=== PATIENT | female | born 2005 | race African-American/Black ===

== ENCOUNTER 2025-03-06 17:46 | Inpatient (IN) | payer OTHER, SELFPAY ==
[2025-03-06 18:01] VITALS: BP 156/100; PULSE 92; O2SAT 98
[2025-03-06 18:02] VITALS: BP 146/95; PULSE 110; RESP 16; TEMP 37.1; O2SAT 98; BMI 34.2
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
[2025-03-06 18:39] LABS: MANUAL DIFF FLAG NO
[2025-03-06 18:40] LABS: Basophils Absolute Auto 0.1 X10*3/uL (0.0-0.2); Basophils Percent Auto 0.6 % (0-2); Eosinophils Percent Auto 0.2 % (0-4); Hematocrit 39.4 % (42.0-52.0); Hemoglobin 13.4 g/dl (14.0-18.0); Imm Gran Abs Auto 0.04 X10*3/uL (0.00-0.03); Imm Gran Pct Auto 0.3 % (0.0-0.4); Lymphocytes Absolute Auto 1.9 X10*3/uL (1.2-4.9); Lymphocytes Percent Auto 15.1 % (20-40); Mean Corpuscular Hemoglobin 28.3 pg (27.0-33.0); Mean Corpuscular Volume 83.3 fL (80.0-98.0); Mean Platelet Volume 9.9 fL (9.4-12.4); Monocytes Absolute Auto 0.7 X10*3/uL (0.1-1.2); Monocytes Percent Auto 5.3 % (2-11); Neutrophils Absolute Auto 9.8 x10*3/uL (2.0-8.3); Neutrophils Percent Auto 78.5 % (45-73); Platelet Count 429 X10*3/uL (160-400); Red Blood Count 4.73 X10*6/uL (4.60-5.80); Red Cell Distribution Width 12.9 % (11.0-16.0); White Blood Count 12.5 X10*3/uL (4.8-10.8)
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
[2025-03-06 18:55] LABS: Alanine Aminotransferase 16 U/L (0-40); Albumin Level 4.9 g/dL (3.5-5.0); Alkaline Phosphatase 91 U/L (39-117); Anion Gap 14 (12-20); Aspartate Amino Transferase 30 U/L (5-37); Bilirubin Total 0.4 mg/dL (0.0-1.0); Blood Urea Nitrogen 9 mg/dL (9-16); Carbon Dioxide 24 mmol/L (22-29); Chloride 108 mmol/L (96-108); Creatinine Clr Calc Pharmacy 174.1; Estimated Glomerular Filt Rate > 60; Ethanol < 10 mg/dL; Glucose Random 103 mg/dL (60-115); Potassium 3.9 mmol/L (3.3-5.1); Sodium 142 mmol/L (135-145); Total Protein 8.7 g/dL (6.5-8.0)
[2025-03-06 19:25] LABS: Appearance Urine Clear; Color Urine Yellow; Glucose Urine UA Negative (Negative); Leukocyte Esterase Urine Negative (Negative); Nitrite Urine Negative (Negative); Specific Gravity - Urine 1.025 (1.005-1.025); UMIC TRIGGER UACC YES; Urine Blood Negative (Negative); Urine Ketones Trace mg/dL (Negative); Urine Protein 30 (1+) mg/dL (Neg-Trace)
[2025-03-06 19:28] LABS: Bacteria Urine None Seen (None Seen); Hyaline Casts Urine 0-2 /LPF (0-2); RBC Urine 0-2 /HPF (0-2); Squamous Epithelial Cell Urine 0-2 /HPF (0-2); WBC Urine 0-5 /HPF (0-5)
[2025-03-06 19:32] LABS: Amphetamine Screen Urine Not Detected (Not Detect); Barbiturates, Urine Not Detected (Not Detect); Benzodiazepines Screen Urine POSITIVE (Not Detect); Buprenorphine Scr Not Detected (Not Detect); Cannabinoid Screen Urine POSITIVE (Not Detect); Cocaine Screen Urine Not Detected (Not Detect); Fentanyl, urine Not Detected (Not Detect); Methadone Screen, Urine Not Detected (Not Detect); Opiate Screen Urine Not Detected (Not Detect); Oxycodone Screen Urine Not Detected (Not Detect); Phencyclidine Screen Urine Not Detected (Not Detect)
--- NOTE | 2025-03-06 19:42 | ED_ITS ---
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 Patient indicates she was involved in a stressful conversation with her mother over her prior traumas. The conversation did not go well, the patient became more anxious and upset, and began to cry hysterically. The patient states ?that her mother has no empathy for her, that she pretends to be empathetic, then makes jokes about her emotional distress?. Patient's mother called EMS to the home. Patient denies SI or HI. The patient does have a prior history of suicide attempts including overdose and cutting. Related Data Home Medications ?Medication ?Instructions ?Recorded ?Confirmed clobazam 10 mg tablet 20 mg PO BEDTIME 03/06/25 03/07/25 levetiracetam 250 mg tablet 2,000 mg PO BID 03/06/25 03/07/25 medroxyprogesterone 150 mg/mL 150 mg IM Q90D 03/06/25 03/07/25 intramuscular suspension clonazepam 2 mg disintegrating 2 mg PO NEEDED 03/07/25 03/07/25 tablet Allergies Allergy/AdvReac Type Severity Reaction Status Date / Time lactose AdvReac Stomach Verified 03/07/25 07:50 Upset Review of Systems 2 Review of Systems: Yes all other systems are reviewed and are negative Constitutional: Constitutional: Denies fatigue and Denies fever(s) Cardiovascular: Cardiovascular: Denies chest pain and Denies dyspnea Respiratory: Respiratory: Denies dyspnea Gastrointestinal: Gastrointestinal: Denies abdominal pain, Denies nausea and Denies vomiting Endocrine: Endocrine: Denies fatigue PMFSH Past Medical History Attestation statement: The following information was validated with the patient. Social History Social History Alcohol intake: never Patient Tobacco Use Status: Never used Tobacco Smoked in Last 30 Days: No Use of substances other than those prescribed or required for medical reasons: Yes Substance Use Type: Marijuana Substance Use Frequency: Occasionally Substance Use Frequency Other:: States she has not smoked marijuana in days Last Used Substance: Days (ago) Any prior treatment program specific to substance use: No Advance Directives: No Advance Directives Information Provided: No Nutrition Risks: No Nutritional Risk Physical Exam ED Vital Signs: Vital Signs - 24 hr 03/06/25 18:02 03/06/25 22:14 03/07/25 06:37 Temperature 98.8 F 98.4 F Pulse Rate 110 H 94 83 Respiratory Rate 16 18 16 Blood Pressure 146/95 H 149/84 H 124/71 Pulse Oximetry 98 98 Oxygen Delivery Method Room Air Room Air 03/07/25 09:59 Temperature 98.0 F Pulse Rate 87 Respiratory Rate 18 Blood Pressure 142/89 H Pulse Oximetry 96 Oxygen Delivery Method Room Air BMI result Body Mass Index 34.2 Const Other: Alert Orientation/consciousness: patient oriented x3 Resp Effort & Inspection: normal respiratory effort Cardio Other: Normal peripheral perfusion Skin Other: Warm dry no rash Neuro General: patient oriented x3, gait normal, no focal motor deficits and CN's II- XI intact bilaterally Psych Other: Cooperative, tearful at times, pressured speech, disorganized thought process, often reverting back to her prior conversations she has had with the mother in the past about her traumas, difficult for the patient to answer questions involving what occurred today, which brought her to the emergency room Course Reevaluation(s) Reevaluation #1: Just received recent records from [facility] from February 09. We have never seen the patient here in the [facility] Emergency Department, we did not have her full medical history. Time: 22:15 Reevaluation #2: Time: 02:10 Date: 03/07/25 Provider: JONNA Palacios Patient in physician observation for psychiatric evaluation.? No acute events reported overnight. No current complaints. VS stable.? Patient is in bed search status/pending CARE team evaluation. Will continue to monitor. Reevaluation #3: Time: 07:07 Date: 03/07/25 Provider: Kimberly Rubin DO Patient in physician observation for psychiatric evaluation.? No acute events reported overnight. No current complaints. VS stable.? pending CARE team evaluation. Will continue to monitor. Additional Reevaluation(s): Time: 16:55 Date: 03/07/25 Provider: Kimberly Rubin DO Physician observation ended at 455pm. Patient to be admitted as inpatient to psychiatry. Medications Administered Generic Name Dose Route Start Last Admin Trade Name Freq PRN Reason Stop Dose Admin Acetaminophen 650 mg 03/07/25 15:44 03/07/25 16:13 Acetaminophen 325 Mg Tablet PO 650 mg Q6H PRN Administration Pain, Mild 1-3,fever,headache Clobazam 20 mg 03/06/25 21:45 03/06/25 21:45 Clobazam 10 Mg Tablet PO 20 mg BEDTIME EVERETT Administration Ibuprofen 600 mg 03/07/25 15:44 03/07/25 16:12 Ibuprofen 600 Mg Tablet PO 600 mg Q6H PRN Administration Pain, Moderate(Pain Scale 4-6) Levetiracetam 2,000 mg 03/06/25 21:30 03/07/25 10:05 Levetiracetam 1,000 Mg Tablet PO 2,000 mg BID EVERETT Administration Discontinued Medications Generic Name Dose Route Start Last Admin Trade Name Eric PRN Reason Stop Dose Admin Melatonin 9 mg 03/06/25 23:11 03/06/25 23:26 Melatonin 3 Mg Tablet PO 03/06/25 23:12 9 mg ONCE ONE Administration Medical Decision Making Medical Decision Making MDM Narrative: 19-year-old F with hx of obesity, PCOS, IBS, anxiety and depression, ADHD, 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 Patient indicates she was involved in a stressful conversation with her mother over her prior traumas. The conversation did not go well, the patient became more anxious and upset, and began to cry hysterically. The patient states ?that her mother has no empathy for her, that she pretends to be empathetic, then makes jokes about her emotional distress?. Patient's mother called EMS to the home. Patient denies SI or HI. The patient does have a prior history of suicide attempts including overdose and cutting. Problem: Psychiatric illness , seizure disorder History: Per patient I have considered the following differential diagnoses: SI, HI, decompensated psychiatric illness, drug/alcohol intoxication Plan: Screening labs including ethanol and drug screen we will be obtained, care team consult has been placed. The patient will likely require a psychiatric consult, she seems somewhat manic I have independently reviewed the following tests: Labs: No leukocytosis, not anemic, drug screen positive for benzos and marijuana, ethanol negative, not Lab Data 03/06/25 18:33 03/06/25 18:33 Labs: Lab Results 03/06/25 03/06/25 03/07/25 Range/Units 18:33 19:11 10:17 WBC 12.5 H (4.8-10.8) X10*3/uL RBC 4.73 (4.60-5.80) X10*6/uL Hgb 13.4 L (14.0-18.0) g/dl Hct 39.4 L (42.0-52.0) % MCV 83.3 (80.0-98.0) fL MCH 28.3 (27.0-33.0) pg MCHC 34.0 (31.0-36.0) g/dl RDW 12.9 (11.0-16.0) % Plt Count 429 H (160-400) X10*3/uL MPV 9.9 (9.4-12.4) fL Immature Gran % (Auto) 0.3 (0.0-0.4) % Neut % (Auto) 78.5 H (45-73) % Lymph % (Auto) 15.1 L (20-40) % Bland % (Auto) 5.3 (2-11) % Eos % (Auto) 0.2 (0-4) % Baso % (Auto) 0.6 (0-2) % Lymph # (Auto) 1.9 (1.2-4.9) X10*3/uL [place] # (Auto) 0.7 (0.1-1.2) X10*3/uL Eos # (Auto) 0.0 (0.0-0.4) X10*3/uL Baso # (Auto) 0.1 (0.0-0.2) X10*3/uL Abs Immat Gran (auto) 0.04 H (0.00-0.03) X10*3/uL Absolute Neuts (auto) 9.8 H (2.0-8.3) x10*3/uL Absolute Nucleated RBC 0.000 (0.0-0.012) X10*3/uL Nucleated RBC % (auto) 0.0 (0.0-0.2) /100WBC Sodium 142 (135-145) mmol/L Potassium 3.9 (3.3-5.1) mmol/L Chloride 108 (96-108) mmol/L Carbon Dioxide 24 (22-29) mmol/L Anion Gap 14 (12-20) BUN 9 (9-16) mg/dL Creatinine 0.79 (0.5-1.4) mg/dL Estim Creat Clear Calc 174.1 Estimated GFR > 60 Random Glucose 103 (60-115) mg/dL Calcium 10.0 (8.4-10.2) mg/dL Total Bilirubin 0.4 (0.0-1.0) mg/dL AST 30 (5-37) U/L ALT 16 (0-40) U/L Alkaline Phosphatase 91 (39-117) U/L Total Protein 8.7 H (6.5-8.0) g/dL Albumin 4.9 (3.5-5.0) g/dL Beta HCG, Quant < 2 mIU/mL Urine Color Yellow Urine Appearance Clear Urine pH 6.0 (5.0-9.0) Ur Specific [place] 1.025 (1.005-1.025) Urine Protein 30 (1+) H (Neg-Trace) mg/dL Urine Glucose (UA) Negative (Negative) mg/dL Urine Ketones Trace (Negative) mg/dL Urine Blood Negative (Negative) Urine Nitrite Negative (Negative) Ur Leukocyte Esterase Negative (Negative) Urine RBC 0-2 (0-2) /HPF Urine WBC 0-5 (0-5) /HPF Ur Squamous Epith Cells 0-2 (0-2) /HPF Urine Bacteria None Seen (None Seen) Hyaline Casts 0-2 (0-2) /LPF Urine Opiates Screen Not Detected (Not Detect) Ur Buprenorphine Scrn Not Detected (Not Detect) ng/mL Ur Oxycodone Screen Not Detected (Not Detect) ng/mL Urine Methadone Screen Not Detected (Not Detect) ng/mL Urine Fentanyl Screen Not Detected (Not Detect) Ur Barbiturates Screen Not Detected (Not Detect) Ur Phencyclidine Scrn Not Detected (Not Detect) Ur Amphetamines Screen Not Detected (Not Detect) U Benzodiazepines Scrn POSITIVE H (Not Detect) Urine Cocaine Screen Not Detected (Not Detect) U Marijuana (THC) Screen POSITIVE H (Not Detect) Ethyl Alcohol < 10 mg/dL Influenza Type A (PCR) NEGATIVE (Negative) Influenza Type B (PCR) NEGATIVE (Negative) RSV RNA Qual (PCR) NEGATIVE (Negative) SARS-CoV-2 RNA (RT-PCR) NEGATIVE (Negative) Discharge Plan Discharge Clinical Impression: Emotional stress, Anxiety, Disorganized thought process Patient Disposition: Admitted As Inpatient Interventions: [place]-Suicide Risk Severity Scale Last Done: 03/06/25 18:39
[2025-03-06 20:01] LABS: HCG Quantitative < 2 mIU/mL
[2025-03-06] MEDS: cloBAZam 10 MG TABLET 20 MG PO (21:45)
[2025-03-06] MEDS: levETIRAcetam 1,000 MG TABLET 2000 MG PO (21:46)
[2025-03-06 22:14] VITALS: BP 149/84; PULSE 94; RESP 18
[2025-03-06] MEDS: Melatonin 3 MG TABLET 9 MG PO (23:26)
[2025-03-07 06:37] VITALS: BP 124/71; PULSE 83; RESP 16; TEMP 36.9; O2SAT 98
[2025-03-07 09:59] VITALS: BP 142/89; PULSE 87; RESP 18; TEMP 36.7; O2SAT 96
[2025-03-07] MEDS: levETIRAcetam 1,000 MG TABLET 2000 MG PO ×2 (10:05→21:13)
[2025-03-07 11:06] LABS: Influenza A PCR NEGATIVE (Negative); Influenza B PCR NEGATIVE (Negative); Resp Syncy Virus RNA Qual PCR NEGATIVE (Negative); SARS COV2 PCR INHOUSE NEGATIVE (Negative)
--- NOTE | 2025-03-07 11:11 | PC.NURSE ---
Report received. Taken over care at this time.
--- NOTE | 2025-03-07 13:39 | PHA.MEDREC ---
Pharmacy Consult ? Medication Reconciliation Pharmacy has reviewed the medication reconciliation done by nursing and also spoke to patient to confirm medication list. Per patient, she takes 8 tablets of levetiracetam 250 mg twice a day because the bigger dose/size tablets give her a hard time of swallowing. She can't recall the date of last dose of medroxyprogesterone injection.
--- NOTE | 2025-03-07 14:28 | MHC.EDTECH ---
While patient was in the shower she pulled the emergency button saying she felt like she was going to have a seizure at which point me and Precious started to talk to her and change the subject finish helping her get dressed and walked her room without incident and notified the nurse
--- NOTE | 2025-03-07 14:45 | PC.NURSE ---
Pt. asked to speak to primary RN. Pt. appears anxious and is making various statements that something is wrong with her. Pt. appears to be having flight of ideas and rambling on about various topics. Informed pt. will reach out to MD. about her complaints. Will awaiting new orders.
--- NOTE | 2025-03-07 15:00 | PC.NURSE ---
Pt. seems to be okay while in her room. Pt. continues to come out of her room, and stating having multiple complaints of pain. Pt. appears anxious and stating various things going on with her and to inform the doctor of her issues.
--- NOTE | 2025-03-07 15:17 | PC.NURSE ---
Reached out to MD Rubin about pt's multiple complaints of pain and that she appears anxious. MD notified and made aware. No new orders at this time.
--- NOTE | 2025-03-07 15:22 | PC.NURSE ---
MD Rubin came to speak to pt. at bedside. Care care team coordinator scheduler in there as well.
--- NOTE | 2025-03-07 15:45 | PC.NURSE ---
Per CARE Team, pt. to be an admit as inpt.
[2025-03-07] MEDS: Ibuprofen 600 MG TABLET PO (16:12)
[2025-03-07] MEDS: Acetaminophen 325 MG TABLET 650 MG PO (16:13)
[2025-03-07 16:38] VITALS: BP 159/89; PULSE 102; RESP 20; TEMP 36.7; O2SAT 100
[2025-03-07 16:42] LABS: UPreg QC Valid YES; Urine Pregnancy NEGATIVE (NEGATIVE)
[2025-03-07 18:00] VITALS: BP 146/81; PULSE 102; TEMP 36.9; O2SAT 95
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
[2025-03-07] MEDS: cloBAZam 10 MG TABLET 20 MG PO (21:13)
[2025-03-07] MEDS: traZODone HCL 50 MG TABLET PO (21:14)
[2025-03-07 22:03] VITALS: BP 121/7; PULSE 72; RESP 18; TEMP 36.2; O2SAT 97
[2025-03-08] MEDS: clonazePAM 1 MG TABLET 2 MG PO (01:02)
[2025-03-08] MEDS: Ibuprofen 600 MG TABLET PO ×2 (01:02→08:18)
[2025-03-08 07:50] VITALS: BP 138/86; PULSE 121; RESP 16; TEMP 36.4; O2SAT 99
[2025-03-08] MEDS: levETIRAcetam 1,000 MG TABLET 2000 MG PO ×2 (08:18→21:13)
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
[2025-03-08] MEDS: Milk of Magnesia 30 ML ORAL.SUSP PO (11:04)
[2025-03-08 20:15] VITALS: BP 128/78; PULSE 96; TEMP 37.1; O2SAT 97
[2025-03-08] MEDS: cloBAZam 10 MG TABLET 20 MG PO (21:12)
[2025-03-08] MEDS: Prazosin HCL 1 MG CAPSULE PO (21:13)
[2025-03-08] MEDS: traZODone HCL 50 MG TABLET PO ×2 (21:13→22:48)
[2025-03-08] MEDS: diphenhydrAMINE HCL 25 MG CAPSULE 50 MG PO (22:48)
[2025-03-09 08:00] VITALS: BP 111/52; PULSE 90; RESP 16; TEMP 36.8; O2SAT 97
[2025-03-09] MEDS: levETIRAcetam 1,000 MG TABLET 2000 MG PO ×2 (08:38→21:53)
--- NOTE | 2025-03-09 15:36 | P.PNPSI_ITS ---
Subjective Subjective Date of Service: 03/09/25 Reason For Visit: PTSD, Cannabis Use Disorder Interim History: Active on unit, social with peers. medication compliant. pt reports feeling better today; reports some anxiety d/t peer slamming doors. getting along with room mate well. denies any issues at this time. denies SI/HI/VH/AH. continue current tx plan. Medication Compliance: Yes Side effects from medications: No Attending Groups: Yes Mental Status Exam Mental Status Exam Patient Appearance: Appropriate Patient Orientation: Person, Place, Time and Situation Level of Consciousness: Awake and Alert Patient Behavior: Appropriate and Cooperative Mood Description: Anxious Affect Description: Anxious Ability to Follow Directions: Good Speech Pattern: Clear Memory Description: Intact Hallucinations: None Delusions: Not Present Thought Process: Intact Thought Content: positive for Intact Diagnostics Vital Signs (24Hr): Vital Signs - 24 hr 03/08/25 20:15 03/09/25 08:00 Temperature 98.7 F 98.2 F Pulse Rate 96 90 Respiratory Rate 16 Blood Pressure 128/78 111/52 L Pulse Oximetry 97 97 Oxygen Delivery Method Room Air BMI result Body Mass Index 34.2 Labs 03/06/25 18:33 03/06/25 18:33 Labs: Laboratory Results - last 48 hr 03/07/25 16:31 Urine Test NEGATIVE Medications Medications Current Medications Acetaminophen (Acetaminophen 325 Mg Tablet) 650 mg PO Q6H PRN PRN Reason: Pain, Mild 1-3,fever,headache Last Admin: 03/07/25 16:13 Dose: 650 mg Al Hydroxide/Mg Hydroxide (Magnesium Hydrox/Alum Hydrox 30 Ml Oral.Susp) 30 ml PO Q6H PRN PRN Reason: Heartburn/Nausea Clobazam (Clobazam 10 Mg Tablet) 20 mg PO BEDTIME [facility] Last Admin: 03/08/25 21:12 Dose: 20 mg Clonazepam (Clonazepam 1 Mg Tablet) 2 mg PO Q6H PRN PRN Reason: seizure/agitation Last Admin: 03/08/25 01:02 Dose: 2 mg Hydroxyzine HCl (Hydroxyzine Hcl 25 Mg Tablet) 25 mg PO Q6H PRN PRN Reason: mild anxiety Ibuprofen (Ibuprofen 600 Mg Tablet) 600 mg PO Q6H PRN PRN Reason: Pain, Moderate(Pain Scale 4-6) Last Admin: 03/08/25 08:18 Dose: 600 mg Levetiracetam (Levetiracetam 1,000 Mg Tablet) 2,000 mg PO BID [facility] Last Admin: 03/09/25 08:38 Dose: 2,000 mg Magnesium Hydroxide (Milk Of Magnesia 30 Ml Oral.Susp) 30 ml PO DAILY PRN PRN Reason: Constipation Last Admin: 03/08/25 11:04 Dose: 30 ml Medroxyprogesterone Acetate (Medroxyprogesterone Acetate 150 Mg Vial) 150 mg IM Q90D [facility] Last Admin: 03/08/25 06:40 Dose: Not Given Nicotine Polacrilex (Nicotine Polacrilex 2 Mg Gum) 4 mg BUCCAL Q2H PRN PRN Reason: Nicotine Cravings Prazosin HCl (Prazosin Hcl 1 Mg Capsule) 1 mg PO BEDTIME [facility]; Protocol Last Admin: 03/08/25 21:13 Dose: 1 mg Trazodone HCl (Trazodone Hcl 50 Mg Tablet) 50 mg PO BEDTIME MRX1 PRN PRN Reason: Insomnia Last Admin: 03/08/25 22:48 Dose: 50 mg Allergies Allergies Allergy/AdvReac Type Severity Reaction Status Date / Time lactose AdvReac Stomach Verified 03/07/25 07:50 Upset Assessment & Plan Assessment & Plan (1) PTSD (post-traumatic stress disorder): Status: Acute Code(s): F43.10 - Post-traumatic stress disorder, unspecified Plan Admit, CV, 15 minute checks Collateral contact Diagnostics as needed Encourage full milieu Continue regime Prazosin 1 mg HS nightmares Monitor for seizure activity- ?Pseudoseizure, ?Dissociation, ?Absence seizure. May need EEG if activity is observed. 03/09: Active on unit, social with peers. medication compliant. pt reports feeling better today; reports some anxiety d/t peer slamming doors. getting along with room mate well. denies any issues at this time. denies SI/HI/VH/AH. continue current tx plan. Patient educated on: diagnosis, medication risk/benefits and therapeutic strategies Reason for continued inpatient stay Substantial Risk for: med/psych decompensation Time Spent With Patient Time: Total time managing care of this patient today _20___ minutes.
[2025-03-09 21:28] VITALS: BP 151/87; PULSE 91; TEMP 37; O2SAT 96
[2025-03-09] MEDS: cloBAZam 10 MG TABLET 20 MG PO (21:53)
[2025-03-09] MEDS: traZODone HCL 50 MG TABLET PO ×2 (21:53→23:35)
[2025-03-09] MEDS: Prazosin HCL 1 MG CAPSULE PO (21:53)
[2025-03-10 08:00] VITALS: BP 137/78; PULSE 117; RESP 16; TEMP 36.5; O2SAT 96
[2025-03-10 08:32] LABS: Estimated Average Glucose 105 mg/dL; Hemoglobin A1C 110.1802 umol/L; Hemoglobin A1c % 5.3 % (<6.0); Total Hemoglobin (HGBA1C) 3208.8055 umol/L
[2025-03-10 08:41] LABS: Cholesterol 111 mg/dL (<200); HDL Cholesterol 39 mg/dL (>40); LDL Cholesterol Calculated 60 mg/dL (<100); Magnesium 2.1 mg/dL (1.6-2.6); Triglycerides 61 mg/dL (<150)
[2025-03-10] MEDS: levETIRAcetam 1,000 MG TABLET 2000 MG PO ×2 (08:43→22:27)
[2025-03-10 08:55] LABS: Free T4 (Free Thyroxine) 1.22 ng/dL (0.71-1.85); Thyroid Stimulating Hormone 2.17 uIU/mL (0.32-4.0)
[2025-03-10 09:10] LABS: Folate 11.6 ng/mL (> or = 4.0); Vitamin B12 444 pg/mL (200-900)
--- NOTE | 2025-03-10 15:11 | P.PNPSI_ITS ---
Subjective Subjective Date of Service: 03/10/25 Reason For Visit: PTSD, Cannabis Use Disorder Interim History: Active on unit, social with peers. medication compliant. observed laughing and joking with peers. pt reports feeling good ; pt stated, I feel happier after being here . denies SI/HI/VH/AH. continue current tx plan. Medication Compliance: Yes Side effects from medications: No Attending Groups: Yes Mental Status Exam Mental Status Exam Patient Appearance: Appropriate Patient Orientation: Person, Place, Time and Situation Level of Consciousness: Awake and Alert Patient Behavior: Appropriate and Cooperative Mood Description: Calm Affect Description: Calm Patient Cognition Impaired: No Ability to Follow Directions: Good Speech Pattern: Clear Memory Description: Intact Hallucinations: None Delusions: Not Present Thought Process: Intact Thought Content: positive for Intact Diagnostics Vital Signs (24Hr): Vital Signs - 24 hr 03/09/25 21:28 03/10/25 08:00 Temperature 98.6 F 97.7 F Pulse Rate 91 117 H Respiratory Rate 16 Blood Pressure 151/87 H 137/78 Pulse Oximetry 96 96 Oxygen Delivery Method Room Air Room Air BMI result Body Mass Index 34.2 Labs 03/06/25 18:33 03/06/25 18:33 Labs: Laboratory Results - last 48 hr 03/10/25 08:07 Estimat Average Glucose 105 Hemoglobin A1c % 5.3 Magnesium 2.1 Triglycerides 61 Cholesterol 111 LDL Cholesterol, Calc 60 HDL Cholesterol 39 L Vitamin B12 444 Folate 11.6 TSH 2.17 Free T4 1.22 Medications Medications Current Medications Acetaminophen (Acetaminophen 325 Mg Tablet) 650 mg PO Q6H PRN PRN Reason: Pain, Mild 1-3,fever,headache Last Admin: 03/07/25 16:13 Dose: 650 mg Al Hydroxide/Mg Hydroxide (Magnesium Hydrox/Alum Hydrox 30 Ml Oral.Susp) 30 ml PO Q6H PRN PRN Reason: Heartburn/Nausea Clobazam (Clobazam 10 Mg Tablet) 20 mg PO BEDTIME [facility] Last Admin: 03/09/25 21:53 Dose: 20 mg Clonazepam (Clonazepam 1 Mg Tablet) 2 mg PO Q6H PRN PRN Reason: seizure/agitation Last Admin: 03/08/25 01:02 Dose: 2 mg Hydroxyzine HCl (Hydroxyzine Hcl 25 Mg Tablet) 25 mg PO Q6H PRN PRN Reason: mild anxiety Ibuprofen (Ibuprofen 600 Mg Tablet) 600 mg PO Q6H PRN PRN Reason: Pain, Moderate(Pain Scale 4-6) Last Admin: 03/08/25 08:18 Dose: 600 mg Levetiracetam (Levetiracetam 1,000 Mg Tablet) 2,000 mg PO BID [facility] Last Admin: 03/10/25 08:43 Dose: 2,000 mg Magnesium Hydroxide (Milk Of Magnesia 30 Ml Oral.Susp) 30 ml PO DAILY PRN PRN Reason: Constipation Last Admin: 03/08/25 11:04 Dose: 30 ml Medroxyprogesterone Acetate (Medroxyprogesterone Acetate 150 Mg Vial) 150 mg IM Q90D [facility] Last Admin: 03/08/25 06:40 Dose: Not Given Nicotine Polacrilex (Nicotine Polacrilex 2 Mg Gum) 4 mg BUCCAL Q2H PRN PRN Reason: Nicotine Cravings Prazosin HCl (Prazosin Hcl 1 Mg Capsule) 1 mg PO BEDTIME [facility]; Protocol Last Admin: 03/09/25 21:53 Dose: 1 mg Trazodone HCl (Trazodone Hcl 50 Mg Tablet) 50 mg PO BEDTIME MRX1 PRN PRN Reason: Insomnia Last Admin: 03/09/25 23:35 Dose: 50 mg Assessment & Plan Assessment & Plan (1) PTSD (post-traumatic stress disorder): Status: Acute Code(s): F43.10 - Post-traumatic stress disorder, unspecified Plan Admit, CV, 15 minute checks Collateral contact Diagnostics as needed Encourage full milieu Continue regime Prazosin 1 mg HS nightmares Monitor for seizure activity- ?Pseudoseizure, ?Dissociation, ?Absence seizure. May need EEG if activity is observed. 03/09: Active on unit, social with peers. medication compliant. pt reports feeling better today; reports some anxiety d/t peer slamming doors. getting along with room mate well. denies any issues at this time. denies SI/HI/VH/AH. continue current tx plan. 03/10: Active on unit, social with peers. medication compliant. observed laughing and joking with peers. pt reports feeling good ; pt stated, I feel happier after being here . denies SI/HI/VH/AH. continue current tx plan. Patient educated on: diagnosis and medication risk/benefits Reason for continued inpatient stay Substantial Risk for: med/psych decompensation Time Spent With Patient Time: Total time managing care of this patient today _20___ minutes.
[2025-03-10 18:58] LABS: Levetiracetam Keppra 58.5 mcg/mL (6.0-46.0)
[2025-03-10] MEDS: hydrOXYzine HCL 25 MG TABLET PO (19:22)
[2025-03-10 20:00] VITALS: BP 152/88; PULSE 90; RESP 16; TEMP 36.6; O2SAT 96
[2025-03-10] MEDS: cloBAZam 10 MG TABLET 20 MG PO (22:25)
[2025-03-10 22:26] VITALS: BP 162/88
[2025-03-10] MEDS: Prazosin HCL 1 MG CAPSULE PO (22:26)
[2025-03-10] MEDS: clonazePAM 1 MG TABLET 2 MG PO (22:32)
[2025-03-10] MEDS: traZODone HCL 50 MG TABLET PO (22:32)
[2025-03-11 08:10] VITALS: BP 133/82; PULSE 90; RESP 16; TEMP 36.9; O2SAT 97
[2025-03-11] MEDS: levETIRAcetam 1,000 MG TABLET 2000 MG PO ×2 (08:50→22:01)
--- NOTE | 2025-03-11 09:07 | PC.NURSE ---
pt retracted 3 day notice on Tuesday03/11/25. ST, [place], AJ notified via voicemail.
[2025-03-11] MEDS: Milk of Magnesia 30 ML ORAL.SUSP PO (10:45)
--- NOTE | 2025-03-11 16:17 | P.PNPSI_ITS ---
Subjective Subjective Date of Service: 03/11/25 Reason For Visit: PTSD, Cannabis Use Disorder Interim History: Similar to days prior. social with peers. medication compliant. pt reports feeling good ; denies any issues at this time. denies SI/HI/VH/AH. did laundry. continue current tx plan. Medication Compliance: Yes Side effects from medications: No Attending Groups: Yes Mental Status Exam Mental Status Exam Patient Appearance: Appropriate Patient Orientation: Person, Place, Time and Situation Level of Consciousness: Awake and Alert Patient Behavior: Appropriate and Cooperative Mood Description: Calm Affect Description: Calm Patient Cognition Impaired: No Ability to Follow Directions: Good Speech Pattern: Clear Memory Description: Intact Hallucinations: None Delusions: Not Present Thought Process: Intact Thought Content: positive for Intact Diagnostics Vital Signs (24Hr): Vital Signs - 24 hr 03/10/25 20:00 03/10/25 22:26 03/11/25 08:10 Temperature 97.8 F 98.5 F Pulse Rate 90 90 Respiratory Rate 16 16 Blood Pressure 152/88 H 162/88 H 133/82 Pulse Oximetry 96 97 Oxygen Delivery Method Room Air Room Air BMI result Body Mass Index 34.2 Labs 03/06/25 18:33 03/06/25 18:33 Labs: Laboratory Results - last 48 hr 03/07/25 03/10/25 00:03 08:07 Estimat Average Glucose 105 Hemoglobin A1c % 5.3 Magnesium 2.1 Triglycerides 61 Cholesterol 111 LDL Cholesterol, Calc 60 HDL Cholesterol 39 L Vitamin B12 444 Folate 11.6 TSH 2.17 Free T4 1.22 Levetiracetam 58.5 H Medications Medications Current Medications Acetaminophen (Acetaminophen 325 Mg Tablet) 650 mg PO Q6H PRN PRN Reason: Pain, Mild 1-3,fever,headache Last Admin: 03/07/25 16:13 Dose: 650 mg Al Hydroxide/Mg Hydroxide (Magnesium Hydrox/Alum Hydrox 30 Ml Oral.Susp) 30 ml PO Q6H PRN PRN Reason: Heartburn/Nausea Clobazam (Clobazam 10 Mg Tablet) 20 mg PO BEDTIME [facility] Last Admin: 03/10/25 22:25 Dose: 20 mg Clonazepam (Clonazepam 1 Mg Tablet) 2 mg PO Q6H PRN PRN Reason: seizure/agitation Last Admin: 03/10/25 22:32 Dose: 2 mg Hydroxyzine HCl (Hydroxyzine Hcl 25 Mg Tablet) 25 mg PO Q6H PRN PRN Reason: mild anxiety Last Admin: 03/10/25 19:22 Dose: 25 mg Ibuprofen (Ibuprofen 600 Mg Tablet) 600 mg PO Q6H PRN PRN Reason: Pain, Moderate(Pain Scale 4-6) Last Admin: 03/08/25 08:18 Dose: 600 mg Levetiracetam (Levetiracetam 1,000 Mg Tablet) 2,000 mg PO BID [facility] Last Admin: 03/11/25 08:50 Dose: 2,000 mg Magnesium Hydroxide (Milk Of Magnesia 30 Ml Oral.Susp) 30 ml PO DAILY PRN PRN Reason: Constipation Last Admin: 03/11/25 10:45 Dose: 30 ml Medroxyprogesterone Acetate (Medroxyprogesterone Acetate 150 Mg Vial) 150 mg IM Q90D [facility] Last Admin: 03/08/25 06:40 Dose: Not Given Nicotine Polacrilex (Nicotine Polacrilex 2 Mg Gum) 4 mg BUCCAL Q2H PRN PRN Reason: Nicotine Cravings Prazosin HCl (Prazosin Hcl 1 Mg Capsule) 1 mg PO BEDTIME [facility]; Protocol Last Admin: 03/10/25 22:26 Dose: 1 mg Trazodone HCl (Trazodone Hcl 50 Mg Tablet) 50 mg PO BEDTIME MRX1 PRN PRN Reason: Insomnia Last Admin: 03/10/25 22:32 Dose: 50 mg Allergies Allergies Allergy/AdvReac Type Severity Reaction Status Date / Time No Known Allergies Allergy Verified 03/11/25 12:41 Assessment & Plan Assessment & Plan (1) PTSD (post-traumatic stress disorder): Status: Acute Code(s): F43.10 - Post-traumatic stress disorder, unspecified Plan Admit, CV, 15 minute checks Collateral contact Diagnostics as needed Encourage full milieu Continue regime Prazosin 1 mg HS nightmares Monitor for seizure activity- ?Pseudoseizure, ?Dissociation, ?Absence seizure. May need EEG if activity is observed. 03/09: Active on unit, social with peers. medication compliant. pt reports feeling better today; reports some anxiety d/t peer slamming doors. getting along with room mate well. denies any issues at this time. denies SI/HI/VH/AH. continue current tx plan. 03/10: Active on unit, social with peers. medication compliant. observed laughing and joking with peers. pt reports feeling good ; pt stated, I feel happier after being here . denies SI/HI/VH/AH. continue current tx plan. 03/11: continue current tx plan. Patient educated on: diagnosis and medication risk/benefits Reason for continued inpatient stay Substantial Risk for: med/psych decompensation Time Spent With Patient Time: Total time managing care of this patient today _20___ minutes.
[2025-03-11 20:00] VITALS: BP 137/80; PULSE 94; RESP 16; TEMP 37; O2SAT 98
[2025-03-11] MEDS: clonazePAM 1 MG TABLET 2 MG PO (21:59)
[2025-03-11] MEDS: cloBAZam 10 MG TABLET 20 MG PO (21:59)
[2025-03-11 22:02] VITALS: BP 132/83
[2025-03-11] MEDS: Prazosin HCL 1 MG CAPSULE PO (22:02)
[2025-03-11] MEDS: traZODone HCL 50 MG TABLET PO ×2 (22:04→23:54)
[2025-03-12] MEDS: Milk of Magnesia 30 ML ORAL.SUSP PO (00:43)
[2025-03-12 07:40] VITALS: BP 132/82; PULSE 101; RESP 16; TEMP 36.8; O2SAT 98
[2025-03-12] MEDS: levETIRAcetam 1,000 MG TABLET 2000 MG PO ×2 (08:32→22:47)
[2025-03-12] MEDS: hydrOXYzine HCL 25 MG TABLET PO (08:36)
[2025-03-12 11:15] VITALS: BP 130/72; PULSE 110
[2025-03-12 11:16] VITALS: BP 150/90; PULSE 120
[2025-03-12] MEDS: clonazePAM 1 MG TABLET 2 MG PO ×2 (11:52→18:42)
--- NOTE | 2025-03-12 12:27 | HO.PSYCHPN ---
Subjective Subjective Date of Service: 03/12/25 Reason For Visit: PTSD, Cannabis Use Disorder Subjective Notes: Conditional Voluntary Interim History: Active on unit, social with peers. attending groups. pt reports feeling high anxiety today d/t peer; pt stated, I'm feeling super anxious because one of the other patients keeps staring at me and it makes me uncomfortable . pt educated to please come to staff with any concerns. She denies SI/HI/VH/AH. Utilizing klonopin with positive effect. Medication Compliance: Yes Side effects from medications: No Attending Groups: Yes Mental Status Exam Mental Status Exam Patient Appearance: Appropriate Patient Orientation: Person, Place, Time and Situation Level of Consciousness: Awake and Alert Patient Behavior: Appropriate, Cooperative and Good Eye Contact Mood Description: Anxious Affect Description: Anxious Patient Cognition Impaired: No Ability to Follow Directions: Good Speech Pattern: Clear Memory Description: Intact Hallucinations: None Delusions: Not Present Thought Process: Intact Thought Content: positive for Intact Diagnostics Vital Signs (24Hr): Vital Signs - 24 hr 03/11/25 20:00 03/11/25 22:02 03/12/25 07:40 Temperature 98.6 F 98.2 F Pulse Rate 94 101 H Respiratory Rate 16 16 Blood Pressure 137/80 132/83 132/82 Pulse Oximetry 98 98 Oxygen Delivery Method Room Air BMI result Body Mass Index 34.2 Labs 03/06/25 18:33 03/06/25 18:33 Labs: Laboratory Results - last 48 hr 03/07/25 00:03 Levetiracetam 58.5 H Medications Medications Current Medications Acetaminophen (Acetaminophen 325 Mg Tablet) 650 mg PO Q6H PRN PRN Reason: Pain, Mild 1-3,fever,headache Last Admin: 03/07/25 16:13 Dose: 650 mg Al Hydroxide/Mg Hydroxide (Magnesium Hydrox/Alum Hydrox 30 Ml Oral.Susp) 30 ml PO Q6H PRN PRN Reason: Heartburn/Nausea Clobazam (Clobazam 10 Mg Tablet) 20 mg PO BEDTIME [facility] Last Admin: 03/11/25 21:59 Dose: 20 mg Clonazepam (Clonazepam 1 Mg Tablet) 2 mg PO Q6H PRN PRN Reason: seizure/agitation Last Admin: 03/12/25 11:52 Dose: 2 mg Hydroxyzine HCl (Hydroxyzine Hcl 25 Mg Tablet) 25 mg PO Q6H PRN PRN Reason: mild anxiety Last Admin: 03/12/25 08:36 Dose: 25 mg Ibuprofen (Ibuprofen 600 Mg Tablet) 600 mg PO Q6H PRN PRN Reason: Pain, Moderate(Pain Scale 4-6) Last Admin: 03/08/25 08:18 Dose: 600 mg Levetiracetam (Levetiracetam 1,000 Mg Tablet) 2,000 mg PO BID [facility] Last Admin: 03/12/25 08:32 Dose: 2,000 mg Magnesium Hydroxide (Milk Of Magnesia 30 Ml Oral.Susp) 30 ml PO DAILY PRN PRN Reason: Constipation Last Admin: 03/12/25 00:43 Dose: 30 ml Medroxyprogesterone Acetate (Medroxyprogesterone Acetate 150 Mg Vial) 150 mg IM Q90D [facility] Last Admin: 03/08/25 06:40 Dose: Not Given Nicotine Polacrilex (Nicotine Polacrilex 2 Mg Gum) 4 mg BUCCAL Q2H PRN PRN Reason: Nicotine Cravings Prazosin HCl (Prazosin Hcl 1 Mg Capsule) 1 mg PO BEDTIME [facility]; Protocol Last Admin: 03/11/25 22:02 Dose: 1 mg Trazodone HCl (Trazodone Hcl 50 Mg Tablet) 50 mg PO BEDTIME MRX1 PRN PRN Reason: Insomnia Last Admin: 03/11/25 23:54 Dose: 50 mg Allergies Allergies Allergy/AdvReac Type Severity Reaction Status Date / Time No Known Allergies Allergy Verified 03/11/25 12:41 Assessment & Plan Assessment & Plan (1) PTSD (post-traumatic stress disorder): Status: Acute Code(s): F43.10 - Post-traumatic stress disorder, unspecified Plan Admit, CV, 15 minute checks Collateral contact Diagnostics as needed Encourage full milieu Continue regime Prazosin 1 mg HS nightmares Monitor for seizure activity- ?Pseudoseizure, ?Dissociation, ?Absence seizure. May need EEG if activity is observed. 03/09: Active on unit, social with peers. medication compliant. pt reports feeling better today; reports some anxiety d/t peer slamming doors. getting along with room mate well. denies any issues at this time. denies SI/HI/VH/AH. continue current tx plan. 03/10: Active on unit, social with peers. medication compliant. observed laughing and joking with peers. pt reports feeling good ; pt stated, I feel happier after being here . denies SI/HI/VH/AH. continue current tx plan. 03/11: continue current tx plan. 03/12: Active on unit, social with peers. attending groups. pt reports feeling high anxiety today d/t peer; pt stated, I'm feeling super anxious because one of the other patients keeps staring at me and it makes me uncomfortable . pt educated to please come to staff with any concerns. She denies SI/HI/VH/AH. Utilizing klonopin with positive effect. continue current tx plan. Patient educated on: diagnosis, medication risk/benefits and therapeutic strategies Reason for continued inpatient stay Substantial Risk for: med/psych decompensation Time Spent With Patient Time: Total time managing care of this patient today _20___ minutes.
[2025-03-12] MEDS: Ibuprofen 600 MG TABLET PO (16:48)
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
[2025-03-12 20:00] VITALS: BP 132/70; PULSE 103; RESP 16; TEMP 36.8; O2SAT 98
[2025-03-12] MEDS: cloBAZam 10 MG TABLET 20 MG PO (22:46)
[2025-03-12 22:47] VITALS: BP 129/76
[2025-03-12] MEDS: traZODone HCL 50 MG TABLET PO ×2 (22:47→23:49)
[2025-03-12] MEDS: Prazosin HCL 1 MG CAPSULE PO (22:47)
[2025-03-13] MEDS: clonazePAM 1 MG TABLET 2 MG PO ×2 (01:19→21:38)
--- NOTE | 2025-03-13 05:24 | PC.NURSE ---
Patient c/o being nervous about her new roommate, was offered space in group room A to sleep for the night. Patient accepted offer and has been asleep since 2329.
[2025-03-13 08:19] VITALS: BP 149/81; PULSE 108; RESP 16; TEMP 36.8; O2SAT 97
[2025-03-13] MEDS: levETIRAcetam 1,000 MG TABLET 2000 MG PO ×2 (08:35→21:38)
--- NOTE | 2025-03-13 09:20 | P.PNPSI_ITS ---
Subjective Subjective Date of Service: 03/13/25 Reason For Visit: PTSD, Cannabis Use Disorder Subjective Notes: Conditional Voluntary Healthcare Proxy: No Guardianship: No Medical Problems Affecting Mental Status: No Medication Compliance: Yes Side effects from medications: No Attending Groups: Yes Review of Systems Acute medical concerns: No Patient notes that she has been anxious and attributes her anxiety to behaviors of her roommate and peers; she has not been able to sleep well as a result. She has been taking her medications with short-term relief. She has been taking psychotropic medications since she was a baby; several medications, including wellbutrin, sertraline, and prozac were not effective for her symptoms. She denies SI/HI/AH/VH. Review of Systems Review of Systems Yes all other systems are reviewed and are negative Mental Status Exam Mental Status Exam Narrative: Appearance: Casually dressed Behavior: Calm and cooperative throughout the interview. Eye contact is appropriate, and there are no signs of psychomotor agitation or retardation Speech: Hyperverbal Thought process logical and goal-directed Thought content: Future oriented no self-harming thoughts Mood: Anxious Affect: constricted, mood-congruent SI:denies HI:denies VH/AH:none Delusions: None Insight/judgment: Fair insight and judgment Memory/cog: Alert, oriented x 4. grossly intact to conversational testing Diagnostics Vital Signs (24Hr): Vital Signs - 24 hr 03/12/25 11:15 03/12/25 11:16 03/12/25 20:00 Temperature 98.2 F Pulse Rate 110 H 120 H 103 H Respiratory Rate 16 Blood Pressure 130/72 150/90 H 132/70 Pulse Oximetry 98 Oxygen Delivery Method Room Air 03/12/25 22:47 03/13/25 08:19 Temperature 98.2 F Pulse Rate 108 H Respiratory Rate 16 Blood Pressure 129/76 149/81 H Pulse Oximetry 97 Oxygen Delivery Method Room Air BMI result Body Mass Index 34.2 Labs 03/06/25 18:33 03/06/25 18:33 Medications Medications Current Medications Acetaminophen (Acetaminophen 325 Mg Tablet) 650 mg PO Q6H PRN PRN Reason: Pain, Mild 1-3,fever,headache Last Admin: 03/07/25 16:13 Dose: 650 mg Al Hydroxide/Mg Hydroxide (Magnesium Hydrox/Alum Hydrox 30 Ml Oral.Susp) 30 ml PO Q6H PRN PRN Reason: Heartburn/Nausea Clobazam (Clobazam 10 Mg Tablet) 20 mg PO BEDTIME [facility] Last Admin: 03/12/25 22:46 Dose: 20 mg Clonazepam (Clonazepam 1 Mg Tablet) 2 mg PO Q6H PRN PRN Reason: seizure/agitation Last Admin: 03/13/25 01:19 Dose: 2 mg Hydroxyzine HCl (Hydroxyzine Hcl 25 Mg Tablet) 25 mg PO Q6H PRN PRN Reason: mild anxiety Last Admin: 03/12/25 08:36 Dose: 25 mg Ibuprofen (Ibuprofen 600 Mg Tablet) 600 mg PO Q6H PRN PRN Reason: Pain, Moderate(Pain Scale 4-6) Last Admin: 03/12/25 16:48 Dose: 600 mg Levetiracetam (Levetiracetam 1,000 Mg Tablet) 2,000 mg PO BID [facility] Last Admin: 03/13/25 08:35 Dose: 2,000 mg Magnesium Hydroxide (Milk Of Magnesia 30 Ml Oral.Susp) 30 ml PO DAILY PRN PRN Reason: Constipation Last Admin: 03/12/25 00:43 Dose: 30 ml Medroxyprogesterone Acetate (Medroxyprogesterone Acetate 150 Mg Vial) 150 mg IM Q90D [facility] Last Admin: 03/08/25 06:40 Dose: Not Given Nicotine Polacrilex (Nicotine Polacrilex 2 Mg Gum) 4 mg BUCCAL Q2H PRN PRN Reason: Nicotine Cravings Prazosin HCl (Prazosin Hcl 1 Mg Capsule) 1 mg PO BEDTIME [facility]; Protocol Last Admin: 03/12/25 22:47 Dose: 1 mg Trazodone HCl (Trazodone Hcl 50 Mg Tablet) 50 mg PO BEDTIME MRX1 PRN PRN Reason: Insomnia Last Admin: 03/12/25 23:49 Dose: 50 mg Allergies Allergies Allergy/AdvReac Type Severity Reaction Status Date / Time No Known Allergies Allergy Verified 03/11/25 12:41 Assessment & Plan Assessment & Plan (1) PTSD (post-traumatic stress disorder): Status: Acute Code(s): F43.10 - Post-traumatic stress disorder, unspecified Plan Admit, CV, 15 minute checks Collateral contact Diagnostics as needed Encourage full milieu Continue regime Prazosin 1 mg HS nightmares Monitor for seizure activity- ?Pseudoseizure, ?Dissociation, ?Absence seizure. May need EEG if activity is observed. 03/09: Active on unit, social with peers. medication compliant. pt reports feeling better today; reports some anxiety d/t peer slamming doors. getting along with room mate well. denies any issues at this time. denies SI/HI/VH/AH. continue current tx plan. 03/10: Active on unit, social with peers. medication compliant. observed laughing and joking with peers. pt reports feeling good ; pt stated, I feel happier after being here . denies SI/HI/VH/AH. continue current tx plan. 03/11: continue current tx plan. 03/12: Active on unit, social with peers. attending groups. pt reports feeling high anxiety today d/t peer; pt stated, I'm feeling super anxious because one of the other patients keeps staring at me and it makes me uncomfortable . pt educated to please come to staff with any concerns. She denies SI/HI/VH/AH. Utilizing klonopin with positive effect. continue current tx plan. 03/13: Patient notes that she has been anxious and attributes her anxiety to behaviors of her roommate and peers; she has not been able to sleep well as a result. She has been taking her medications with short-term relief. She has been taking psychotropic medications since she was a baby; several medications, including wellbutrin, sertraline, and prozac were not effective for her symptoms. She denies SI/HI/AH/VH. Will trial buspirone 10 mg twice daily to target anxiety. Continue current treatment regimen. Patient educated on: medication risk/benefits and therapeutic strategies Reason for continued inpatient stay Substantial Risk for: rapid decompensation Time Spent With Patient Time: Total time managing care of this patient today ____ minutes.
[2025-03-13 20:00] VITALS: BP 152/84; PULSE 101; TEMP 36.8; O2SAT 98
[2025-03-13] MEDS: cloBAZam 10 MG TABLET 20 MG PO (21:38)
[2025-03-13 21:39] VITALS: BP 152/84
[2025-03-13] MEDS: busPIRone HCl 10 MG TABLET PO (21:39)
[2025-03-13] MEDS: traZODone HCL 50 MG TABLET PO ×2 (21:39→23:45)
[2025-03-13] MEDS: Prazosin HCL 1 MG CAPSULE PO (21:39)
[2025-03-14] MEDS: hydrOXYzine HCL 25 MG TABLET PO (00:22)
[2025-03-14 08:00] VITALS: BP 110/58; PULSE 90; RESP 18; TEMP 36.7; O2SAT 100
[2025-03-14] MEDS: busPIRone HCl 10 MG TABLET PO (08:39)
[2025-03-14] MEDS: levETIRAcetam 1,000 MG TABLET 2000 MG PO (08:39)
--- NOTE | 2025-03-14 09:42 | P.PNPSI_ITS ---
Subjective Subjective Date of Service: 03/14/25 Reason For Visit: PTSD, Cannabis Use Disorder Subjective Notes: Conditional Voluntary Healthcare Proxy: No Guardianship: No Medical Problems Affecting Mental Status: No Interim History: Patient notes that she continues to feel anxious and attributes her anxiety to behaviors of her peers. She was moved to a different room last night due to report of not tolerating her roommate's behavior. She states that she slept throughout the night. She has been taking her medications as prescribed and attending groups.. She denies SI/HI/AH/VH. She notes that she is ready for discharge today. Medication Compliance: Yes Side effects from medications: No Attending Groups: Yes Review of Systems Acute medical concerns: No Medical Review of Systems: unchanged Mental Status Exam Mental Status Exam Narrative: Appearance: Casually dressed Behavior: Calm and cooperative throughout the interview. Eye contact is appropriate, and there are no signs of psychomotor agitation or retardation Speech: Normal volume and prosody Thought process logical and goal-directed Thought content: Future oriented no self-harming thoughts Mood: anxious Affect: Full SI:denies HI:denies VH/AH:none Delusions: None Insight/judgment: Good insight and judgment Memory/cog: Alert, oriented x 4. grossly intact to conversational testing Diagnostics Vital Signs (24Hr): Vital Signs - 24 hr 03/13/25 20:00 03/13/25 21:39 03/14/25 08:00 Temperature 98.3 F 98.1 F Pulse Rate 101 H 90 Respiratory Rate 18 Blood Pressure 152/84 H 152/84 H 110/58 L Pulse Oximetry 98 100 Oxygen Delivery Method Room Air Room Air BMI result Body Mass Index 34.2 Labs 03/06/25 18:33 03/06/25 18:33 Medications Medications Current Medications Acetaminophen (Acetaminophen 325 Mg Tablet) 650 mg PO Q6H PRN PRN Reason: Pain, Mild 1-3,fever,headache Last Admin: 03/07/25 16:13 Dose: 650 mg Al Hydroxide/Mg Hydroxide (Magnesium Hydrox/Alum Hydrox 30 Ml Oral.Susp) 30 ml PO Q6H PRN PRN Reason: Heartburn/Nausea Buspirone HCl (Buspirone Hcl 10 Mg Tablet) 10 mg PO BID [facility]CLUD[facility] Last Admin: 03/14/25 08:39 Dose: 10 mg Clobazam (Clobazam 10 Mg Tablet) 20 mg PO BEDTIME [facility]CLUD[facility] Last Admin: 03/13/25 21:38 Dose: 20 mg Clonazepam (Clonazepam 1 Mg Tablet) 2 mg PO Q6H PRN PRN Reason: seizure/agitation Last Admin: 03/13/25 21:38 Dose: 2 mg Hydroxyzine HCl (Hydroxyzine Hcl 25 Mg Tablet) 25 mg PO Q6H PRN PRN Reason: mild anxiety Last Admin: 03/14/25 00:22 Dose: 25 mg Ibuprofen (Ibuprofen 600 Mg Tablet) 600 mg PO Q6H PRN PRN Reason: Pain, Moderate(Pain Scale 4-6) Last Admin: 03/12/25 16:48 Dose: 600 mg Levetiracetam (Levetiracetam 1,000 Mg Tablet) 2,000 mg PO BID COUNT [facility]CLUD[facility] Last Admin: 03/14/25 08:39 Dose: 2,000 mg Magnesium Hydroxide (Milk Of Magnesia 30 Ml Oral.Susp) 30 ml PO DAILY PRN PRN Reason: Constipation Last Admin: 03/12/25 00:43 Dose: 30 ml Medroxyprogesterone Acetate (Medroxyprogesterone Acetate 150 Mg Vial) 150 mg IM Q90D [facility]CLUD[facility] Last Admin: 03/08/25 06:40 Dose: Not Given Nicotine Polacrilex (Nicotine Polacrilex 2 Mg Gum) 4 mg BUCCAL Q2H PRN PRN Reason: Nicotine Cravings Prazosin HCl (Prazosin Hcl 1 Mg Capsule) 1 mg PO BEDTIME [facility]CLUD[facility]; Protocol Last Admin: 03/13/25 21:39 Dose: 1 mg Trazodone HCl (Trazodone Hcl 50 Mg Tablet) 50 mg PO BEDTIME MRX1 PRN PRN Reason: Insomnia Last Admin: 03/13/25 23:45 Dose: 50 mg Allergies Allergies Allergy/AdvReac Type Severity Reaction Status Date / Time No Known Allergies Allergy Verified 03/11/25 12:41 Assessment & Plan Assessment & Plan (1) PTSD (post-traumatic stress disorder): Status: Acute Code(s): F43.10 - Post-traumatic stress disorder, unspecified Plan Admit, CV, 15 minute checks Collateral contact Diagnostics as needed Encourage full milieu Continue regime Prazosin 1 mg HS nightmares Monitor for seizure activity- ?Pseudoseizure, ?Dissociation, ?Absence seizure. May need EEG if activity is observed. 03/09: Active on unit, social with peers. medication compliant. pt reports feeling better today; reports some anxiety d/t peer slamming doors. getting along with room mate well. denies any issues at this time. denies SI/HI/VH/AH. continue current tx plan. 03/10: Active on unit, social with peers. medication compliant. observed laughing and joking with peers. pt reports feeling good ; pt stated, I feel happier after being here . denies SI/HI/VH/AH. continue current tx plan. 03/11: continue current tx plan. 03/12: Active on unit, social with peers. attending groups. pt reports feeling high anxiety today d/t peer; pt stated, I'm feeling super anxious because one of the other patients keeps staring at me and it makes me uncomfortable . pt educated to please come to staff with any concerns. She denies SI/HI/VH/AH. Utilizing klonopin with positive effect. continue current tx plan. 03/13: Patient notes that she has been anxious and attributes her anxiety to behaviors of her roommate and peers; she has not been able to sleep well as a result. She has been taking her medications with short-term relief. She has been taking psychotropic medications since she was a baby; several medications, including wellbutrin, sertraline, and prozac were not effective for her symptoms. She denies SI/HI/AH/VH. Will trial buspirone 10 mg twice daily to target anxiety. Continue current treatment regimen. 03/14: Patient notes that she continues to feel anxious and attributes her anxiety to behaviors of her peers. She was moved to a different room last night due to report of not tolerating her roommate's behavior. She states that she slept throughout the night. She has been taking her medications as prescribed and attending groups.. She denies SI/HI/AH/VH. She notes that she is ready for discharge today. Patient educated on: therapeutic strategies Reason for continued inpatient stay Substantial Risk for: stable for discharge Time Spent With Patient Time: Total time managing care of this patient today ____ minutes.
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
== END 2025-03-14 11:28 | disposition home or self-care (01) | DRG 755 ==
LOC: HO.ED 19:51 → HO.PM5 03-07 16:35
PROVIDERS: Emergency Medicine; Physician Assistant Medical; Admitting Provider Clinical Nurse Specialist Psychiatric/Mental Health, Adult; Emergency Provider Emergency Medicine; Visit Provider Clinical Nurse Specialist Psychiatric/Mental Health, Adult
DX: F43.10 Post-traumatic stress disorder, unspecified (principal); G40.B09 Juvenile myoclonic epilepsy, not intractable, without status epilepticus; Z20.822 Contact with and (suspected) exposure to COVID-19; Z79.899 Other long term (current) drug therapy
CPT/HCPCS: 0241U; 36415; 80053; 80061; 80177; 80307; 81001; 81025; 82607; 82746; 83036; 83735; 84439; 84443; 84702; 85025; 99285; S9485

== ENCOUNTER → 2025-03-07 16:23 | Outpatient (BNV) | payer OTHER, SELFPAY | PROVIDERS: Admitting Provider Clinical Nurse Specialist Psychiatric/Mental Health, Adult; Emergency Provider Emergency Medicine; Visit Provider Clinical Nurse Specialist Psychiatric/Mental Health, Adult | DX: F43.11 Post-traumatic stress disorder, acute (principal) | CPT/HCPCS: 99231; 99232 ==